=== PATIENT | female | born 1985 ===

== ENCOUNTER 2021-02-11 01:35 | Inpatient (IN) | payer OTHER ==
--- NOTE | 2021-02-11 04:52 | XRay Report ---
CHEST 2 VIEWS INDICATION / CLINICAL INFORMATION: cough. COMPARISON: None available. FINDINGS: SUPPORT DEVICES: None. HEART / MEDIASTINUM: No significant abnormality. LUNGS / PLEURA: Moderate streaky bilateral parenchymal disease No pneumothorax. ADDITIONAL FINDINGS: No significant additional findings. IMPRESSION: 1. Probable bilateral Covid pneumonia Signer Name: Riley Richmond MD Signed: 02/11/2021 4:47 AM Workstation Name: [id number]
--- NOTE | 2021-02-11 07:38 | Emergency Department Report ---
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 Kd Ariza) Mode of arrival: Ambulatory Limitations: No Limitations - History of Present Illness Initial comments: 35-year-old female who is 33 weeks presents to the emergency department complaining of 1 week of headache, coryza and malaise after testing positive Covid about a week to week and a half ago. Over the past few days she reports developing chest pain shortness of breath with fever. Symptoms have been progressive worsening since the onset she reports no hemoptysis no hematemesis hematochezia. Radiation: non-radiation Severity scale (0 -10): 4 Quality: dull Improves with: none Worsens with: none Associated Symptoms: cough, fever/chills, malaise. denies: syncope, weakness Treatments Prior to Arrival: none - Related Data Allergies Allergy/AdvReac Type Severity Reaction Status Date / Time No Known Allergies Allergy Verified 02/11/21 02:13 ED Review of Systems ROS: Stated complaint: BACK PAIN/COUGH/HEADACHE - 33 WKS Other details as noted in HPI Comment: All other systems reviewed and negative ED Past Medical Hx - Past Medical History Previous Medical History?: No - Surgical History Past Surgical History?: No ED Physical Exam - General Limitations: No Limitations General appearance: alert, in no apparent distress - Head Head exam: Present: atraumatic, normocephalic - Eye Eye exam: Present: normal appearance, PERRL, EOMI Pupils: Present: normal accommodation - ENT ENT exam: Present: normal exam, normal orophraynx, mucous membranes moist, TM's normal bilaterally - Neck Neck exam: Present: normal inspection, full ROM - Respiratory Respiratory exam: Present: normal lung sounds bilaterally, rhonchi. Absent: respiratory distress - Cardiovascular Cardiovascular Exam: Present: regular rate, normal rhythm. Absent: systolic murmur, diastolic murmur, rubs, gallop - GI/Abdominal GI/Abdominal exam: Present: soft, normal bowel sounds, other (Protuberant ) - Extremities Exam Extremities exam: Present: normal inspection - Back Exam Back exam: Present: normal inspection - Neurological Exam Neurological exam: Present: alert, oriented X3 - Psychiatric Psychiatric exam: Present: normal affect, normal mood - Skin Skin exam: Present: warm, dry, intact, normal color. Absent: rash ED Course Vital Signs 02/11/21 01:36 Temperature 100.1 F H Pulse Rate 107 H Respiratory 18 Rate Blood Pressure 129/76 [Right] O2 Sat by Pulse 98 Oximetry - Consultations Consultation #1: 02/11/21 07:40 Case discussed with hospitalist x2, is aware of the recommendations of the FISHING VESSEL CAPTAIN. Plan is for hospitalist to admit please see their note and order for more detail ED Medical Decision Making - Radiology Data Radiology results: report reviewed [facility] [address] [place] [address] XRay Report Signed Patient: BURT OBRIEN MR#: [id number] : 1985 A cct:[id number] Age/Sex: 35 / F ADM Date: 02/11/21 Loc: ED Attending Dr: Ordering Physician: REYMUNDO CAPONE Date of Service: 02/11/21 Procedure(s): XR chest routine 2V Accession Number(s): [id number] cc: REYMUNDO CAPONE Fluoro Time In Minutes: CHEST 2 VIEWS INDICATION / CLINICAL INFORMATION: cough. COMPARISON: None available. FINDINGS: SUPPORT DEVICES: None. HEART / MEDIASTINUM: No significant abnormality. LUNGS / PLEURA: Moderate streaky bilateral parenchymal disease No pneumothorax. ADDITIONAL FINDINGS: No significant additional findings. IMPRESSION: 1. Probable bilateral Covid pneumonia Signer Name: Riley Richmond MD Signed: 02/11/2021 4:47 AM Workstation Name: [id number] Transcribed By: TL Dictated By: Riley Richmond MD Electronically Authenticated By: Riley Richmond MD Signed Date/Time: 02/11/21446 DD/ 6 TD/TT: Print Cancel - Medical Decision Making This patient presents to the emergency department with fever and lower respiratory symptoms that appear to be related to her and COVID-19. Patient has had reported complaints COVID-19 infection. Differential diagnosis includes other viral causes of lower respiratory symptoms, pneumonia, asthma, bronchitis. Presentation not consistent with acute cardiac etiologies to include acute coronary syndrome, CHF, pericardial effusion or tamponade. The presentation is not consistent with acute asthma, COPD, allergic reactions, electrolyte derangement, neurological causes or toxidromes. Patient is well-appearing with acceptable vitals and relatively stable however does develop shortness of breath with ambulation without any desaturation coupled with the does not feel she is is safe to be discharged home Provide strict return precautions and instructions on self isolation/quarantine and anticipatory guidance. FISHING VESSEL CAPTAIN is at [facility] does not come to this facility plan is to admit for close follow-up and stabilization. Discussed the case with Dr. Sainz medicine who referred me to FISHING VESSEL CAPTAIN Dr. Vazquez who then referred me back to medicine Case was also discussed with my attending who also had [id number] with the patient x2 is aware of the findings and agrees with the admission he is also aware with the complications I encountered while attempting to admit this patient. Critical care attestation.: If time is entered above; I have spent that time in minutes in the direct care of this critically ill patient, excluding procedure time. ED Disposition Clinical Impression: Pneumonia due to COVID-19 virus, Dyspnea due to COVID-19, Disposition: ADMITTED INPATIENT Is pt being admited?: Yes Does the pt Need Aspirin: No Condition: Stable Instructions: Bacterial Pneumonia (ED)
[2021-02-11] MEDS ORDERED: MAGNESIUM HYDROXIDE (MOM) ORAL LIQD UDC PO PRN (08:56)
[2021-02-11] MEDS ORDERED: ACETAMINOPHEN 325 MG TAB PO PRN (08:56)
[2021-02-11] MEDS ORDERED: NALOXONE 0.4 MG/1 ML INJ IV PRN (08:56)
[2021-02-11] MEDS ORDERED: traMADol 50 MG TAB PO PRN (08:56)
[2021-02-11] MEDS ORDERED: ONDANSETRON 4 MG/2 ML INJ IV PRN (08:56)
--- NOTE | 2021-02-11 09:03 | History and Physical Report ---
History of Present Illness Date of examination: 02/11/21 Date of admission: 02/11/21 Chief complaint: Shortness of breath, abdominal pain, back pain, cough recent diagnosis of COVID- 19 History of present illness: Patient is a 35-year-old female currently at 33 weeks of with COVID-19 diagnosed a week and a half ago. She reports that since then she has been having shortness of breath subjective fever and worsening cough and low back pain which made her come to the hospital today for further evaluation. At the time I saw her in the ED she was noted to have a T-max of 100.1 with a normal white count with chest x-ray revealing bilateral pneumonia. I did have one of the nurses ambulate and she was satting 91% with ambulation with a heart rate of 118. Labs had not been ordered at the time of my evaluation Frisian interpretation used for my interview Past History Past Medical History: No medical history Past Surgical History: No surgical history Social history: no significant social history Family history: no significant family history Medications and Allergies Allergies Allergy/AdvReac Type Severity Reaction Status Date / Time No Known Allergies Allergy Verified 02/11/21 02:13 Review of Systems All systems: negative Constitutional: fever, malaise, lethargy Respiratory: cough, shortness of breath, no cough with sputum, no excessive sputum, no hemoptysis, no dyspnea on exertion Musculoskeletal: low back pain Exam - Physical Exam Narrative exam: VITAL SIGNS: Reviewed. GENERAL: The patient appears normally developed, Vital signs as documented. HEAD: No signs of head trauma. EYES: Pupils are equal. Extraocular motions intact. EARS: Hearing grossly intact. MOUTH: Oropharynx is normal. NECK: No adenopathy, no JVD. CHEST: Chest with clear breath sounds bilaterally. No wheezes, rales, or rhonchi. CARDIAC: Regular rate and rhythm. S1 and S2, without murmurs, gallops, or rubs. VASCULAR: No Edema. Peripheral pulses normal and equal in all extremities. ABDOMEN: Soft, non tender and non distended [gravidUS]. No rebound or guarding, and no masses palpated. Bowel Sounds normal. MUSCULOSKELETAL: Good range of motion of all major joints. Extremities without clubbing, cyanosis or edema. NEUROLOGIC EXAM: Alert and oriented x 3 No focal sensory or strength deficits. Speech normal. Follows commands. PSYCHIATRIC: Mood normal. SKIN: detail exam as documented in skin assessment - Constitutional Vitals: Temp Pulse Resp BP Pulse Ox 100.1 F H 100 H 17 129/76 95 02/11/21 01:36 02/11/21 08:31 02/11/21 08:33 02/11/21 01:36 02/11/21 08:33 Results - Labs CBC & Chem 7: 02/11/21 09:24 02/11/21 09:24 Assessment and Plan Assessment and plan: Patient is a 35-year-old female currently at 33 weeks of with COVID-19 diagnosed a week and a half ago. She reports that since then she has been having shortness of breath subjective fever and worsening cough and low back pain which made her come to the hospital today for further evaluation. At the time I saw her in the ED she was noted to have a T-max of 100.1 with a normal white count with chest x-ray revealing bilateral pneumonia. I did have one of the nurses ambulate and she was satting 91% with ambulation with a heart rate of 118. Labs had not been ordered at the time of my evaluation Frisian interpretation used for my interview cxr REVIEWED, Bilateral Infiltrates COVID 19 Pneumonia Respiratory failure without Hypoxia at 33 weeks Hypokalemia Plan Admit to [facility] COVID 19 Protocol Oxygen for comfort measures Inflammatory markers Discussed with SOLE CONDITIONER and ID prior to admission both ok with Remedesivir. Discussed with the patient via property analyst and she gave consent Adam [facility] O[facility] AND ID Consult Rememdeivir Steroids Re-evlauate in am for possible discharge counselling provided DVT/GI prophy Patients condition discussed extensively, risk factors discussed. Advance Directives: Yes Plan of care discussed with patient/family: Yes
--- NOTE | 2021-02-11 09:33 | Ultrasound Report ---
ULTRASOUND OBSTETRIC INDICATION / CLINICAL INFORMATION: , abd pain. Clinical Gestational Age (GA): 33 weeks 0 days TECHNIQUE: Transabdominal. COMPARISON: None available. FINDINGS: There is a single intrauterine . Biparietal Diameter = 8.3 cm = 33 weeks, 2 day(s). Head Circumference = 30.5 cm = 33 weeks, 6 day(s). Abdominal Circumference = 29.6 cm = 33 weeks, 4 day(s). Femur Length = 5.8 cm = 30 weeks, 4 day(s). Average Ultrasound Age (AUA) = 32 weeks, 6 day(s). Heart Rate: 124 beats per minute. Estimated Weight in grams (if calculated): 2032 Position: cephalic. Cervix: closed. Length in cm (if measured): 4.2 Placenta: anterior and free of the os. Amniotic Fluid Volume: normal Amniotic Fluid Index (GEE) in cm (if calculated): 12.6. Detailed anatomic survey was not performed. There is a normal four-chamber heart. The stomach, kidneys, and bladder are visualized. IMPRESSION: 1. Single, living intrauterine with estimated sonographic age of 32 weeks, 6 day(s). 2. No significant sonographic abnormality. Signer Name: Concha Alfonso MD Signed: 02/11/2021 9:28 AM Workstation Name: [id number]
[2021-02-11] MEDS: ENOXAPARIN 40 MG/0.4 ML INJ SUB-Q SCH (09:49)
[2021-02-11 09:55] LABS: Basophils % (Auto) 0.1 % (0.0-1.8); Hematocrit 36.2 % (30.3-42.9); Hemoglobin 12.9 gm/dl (10.1-14.3); Lymphocytes # (Auto) 1.5 K/mm3 (1.2-5.4); Lymphocytes % (Auto) 19.6 % (13.4-35.0); Mean Corpuscular HGB Conc 36 % (30-34); Mean Corpuscular Volume 87 fl (79-97); Monocytes # (Auto) 0.5 K/mm3 (0.0-0.8); Monocytes % (Auto) 6.9 % (0.0-7.3); Platelet Count 235 K/mm3 (140-440); Red Blood Count 4.15 M/mm3 (3.65-5.03); Red Cell Distribution Width 13.6 % (13.2-15.2)
[2021-02-11] MEDS ORDERED: dexAMETHasone 4 MG/ML VIAL IV ONE (10:00)
[2021-02-11 10:18] LABS: C-Reactive Protein 6.4 mg/dL (0.00-1.30)
[2021-02-11 10:19] LABS: Alanine Aminotransferase 18 units/L (7-56); Albumin 3.1 g/dL (3.9-5); BUN/Creatinine Ratio 8; Blood Urea Nitrogen 3 mg/dL (7-17); Calcium 8.5 mg/dL (8.4-10.2); Hemolysis Index 3
[2021-02-11] MEDS ORDERED: REMDESIVIR 200 MG in SODIUM CHLORIDE 0.9% 250ML 250 ML IV ONE (12:00)
[2021-02-11] MEDS ORDERED: SODIUM CHLORIDE 0.9% 50 ML IVPB IV SCH (12:30)
--- NOTE | 2021-02-11 14:38 | Consultation ---
History of Present Illness - Reason for Consult Consult date: 02/11/21 - History of Present Illness 35 yo F PMHx at 33 weeks presents with 1 week history of COVID. She initially tested positive approximately 1.5 weeks previous. Complaining of SOB, fever. O2 sats down to 92% on room airon ambulation. Afebrile, Tmax 100.1. Normal white count. Imaging personally reviewed: CXR: bilateral pneumonia. Review of systems: Deferred to reduce to the risk of transmission of COVID-19 Medications and Allergies Allergies Allergy/AdvReac Type Severity Reaction Status Date / Time No Known Allergies Allergy Verified 02/11/21 02:13 Active Meds: Active Medications Acetaminophen (Acetaminophen 325 Mg Tab) 650 mg PO Q4H PRN PRN Reason: Pain MILD(1-3)/Fever >100.5/HAUSER Enoxaparin Sodium (Enoxaparin 40 Mg/0.4 Ml Inj) 40 mg SUB-Q QDAY [facility] Last Admin: 02/11/21 09:49 Dose: 40 mg Documented by: REMDESIVIR 100 mg/ Sodium (Chloride) 250 mls @ 500 mls/hr IV Q24HR@2100 [facility] Stop: 02/15/21 21:29 Magnesium Hydroxide (Magnesium Hydroxide (Mom) Oral Liqd Udc) 30 ml PO Q4H PRN PRN Reason: Constipation Naloxone HCl (Naloxone 0.4 Mg/1 Ml Inj) 0.1 mg IV Q2MIN PRN PRN Reason: Res Rate </= 8 or 02 SAT < 92% Ondansetron HCl (Ondansetron 4 Mg/2 Ml Inj) 4 mg IV Q4HR PRN PRN Reason: Nausea And Vomiting Sodium Chloride (Sodium Chloride 0.9% 10 Ml Flush Syringe) 10 ml IV BID [facility] Last Admin: 02/11/21 09:49 Dose: 10 ml Documented by: Sodium Chloride (Sodium Chloride 0.9% 10 Ml Flush Syringe) 10 ml IV PRN PRN PRN Reason: LINE FLUSH Sodium Chloride (Sodium Chloride 0.9% 50 Ml Ivpb) 50 ml IV Q24HR@2100 [facility] Stop: 02/15/21 21:01 Tramadol HCl (Tramadol 50 Mg Tab) 50 mg PO Q6H PRN PRN Reason: Pain, Moderate (4-6) Physical Examination - Physical Exam Narrative exam: Physical exam deferred to reduce risk of transmission of COVID-19. Please refer to primary team's note. - Constitutional Vitals: Vital Signs Temp Pulse Resp BP Pulse Ox 98.3 F 90 28 H 118/81 98 02/11/21 08:56 02/11/21 10:45 02/11/21 10:45 02/11/21 10:45 02/11/21 10:45 Temperature -Last 24 Hours Temperature 98.3 F Temperature 100.1 F Results - Labs CBC & Chem 7: 02/11/21 09:24 02/11/21 09:24 Labs: Abnormal lab results 02/11/21 02/11/21 02/11/21 Range/Units 09:24 09:24 09:24 MCHC 36 H (30-34) % Seg Neutrophils % 73.4 H (40.0-70.0) % D-Dimer 1037.96 H (0-234) ng/mlDDU Potassium (3.6-5.0) mmol/L Carbon Dioxide (22-30) mmol/L BUN (7-17) mg/dL Creatinine (0.6-1.2) mg/dL Alkaline Phosphatase (35-129) units/L C-Reactive Protein 6.40 H (0.00-1.30) mg/dL Albumin (3.9-5) g/dL 02/11/21 Range/Units 09:24 MCHC (30-34) % Seg Neutrophils % (40.0-70.0) % D-Dimer (0-234) ng/mlDDU Potassium 3.2 L (3.6-5.0) mmol/L Carbon Dioxide 19 L (22-30) mmol/L BUN 3 L (7-17) mg/dL Creatinine 0.4 L (0.6-1.2) mg/dL Alkaline Phosphatase 161 H (35-129) units/L C-Reactive Protein (0.00-1.30) mg/dL Albumin 3.1 L (3.9-5) g/dL Assessment and Plan Cultures: COVID PCR: positive as outpatient A/P: 35 yo F pmhx now with: #Severe COVID-19 pneumonia: Patient presented with a week of symptoms, chest x- ray with diffuse bilateral infiltrates, admission O2 sats on 92% room air with ambulation. Inflammatory markers elevated #Acute hypoxemic respiratory failure: Likely secondary to COVID-19 infection. Currently on room air # Recs: -Dexamethasone 6 mg IV/PO daily for 10 days -Remdesivir 200 mg IV q day x 1 followed by 100 mg IV q day x 4 days -Obtain q48-72h inflammatory markers - ferritin, Ddimer, CRP, LDH -Hold on ABx for now. -Anticoagulation per hospital protocol -Proning as able Thank you for the consult, we will continue to follow. No need to complete remdesivir course if ambulatory saturations improve. MD Mignon Montanez [facility] O: [phone] F: [phone]
[2021-02-11] MEDS ORDERED: POTASSIUM CHLORIDE ER 20 MEQ TAB PO ONE (15:45)
--- NOTE | 2021-02-11 20:40 | Ultrasound Report ---
ULTRASOUND BIOPHYSICAL PROFILE INDICATION / CLINICAL INFORMATION: WELL BEING. COMPARISON: None available. FINDINGS: BREATHING MOVEMENT = 2 GROSS BODY MOVEMENT = 2 TONE = 2 QUALITATIVE AMNIOTIC FLUID VOLUME = 2 TOTAL BIOPHYSICAL SCORE = 12/06 AMNIOTIC FLUID INDEX (cm) = 12.6 PRESENTATION: Cephalic. HEART RATE (beats per minute): 124 IMPRESSION: 1. biophysical profile = 12/06 Signer Name: Noe Pisano MD Signed: 02/11/2021 8:36 PM Workstation Name: [id number]
[2021-02-12 08:04] LABS: Basophils % (Auto) 0.2 % (0.0-1.8); Eosinophils % (Auto) 0.1 % (0.0-4.3); Hematocrit 37.1 % (30.3-42.9); Hemoglobin 12.6 gm/dl (10.1-14.3); Lymphocytes # (Auto) 1.6 K/mm3 (1.2-5.4); Lymphocytes % (Auto) 23.8 % (13.4-35.0); Mean Corpuscular HGB Conc 34 % (30-34); Mean Corpuscular Volume 88 fl (79-97); Monocytes # (Auto) 0.6 K/mm3 (0.0-0.8); Monocytes % (Auto) 8.8 % (0.0-7.3); Platelet Count 261 K/mm3 (140-440); Red Blood Count 4.23 M/mm3 (3.65-5.03); Red Cell Distribution Width 13.8 % (13.2-15.2)
--- NOTE | 2021-02-12 08:24 | Consultation ---
History of Present Illness Consult date: 02/11/21 Requesting physician: RAFAL ELIZABETH Reason for consult: other (COVID PNA with known ) History of present illness: 35-year-old G5, P4 at 33 weeks gestation with plan of care and [facility] clinic reported benign care presenting with a known positive Covid test for approximately a week and a half per patient report with worsening shortness of breath and chest pain with a past couple of days admitted by the hospitalist team for Covid pneumonia. Patient denies any complaints. Reports active fetus. Past History Past Medical History: no pertinent history Past Surgical History: no surgical history Family/Genetic History: none Social history: no significant social history - Obstetrical History : 5 Para: 4 Medications and Allergies Allergies Allergy/AdvReac Type Severity Reaction Status Date / Time No Known Allergies Allergy Verified 02/11/21 02:13 Home Medications Medication Instructions Recorded Confirmed Last Taken Type No Known Home Medications [No 02/11/21 02/11/21 Unknown History Reported Home Medications] Active Meds: Active Medications Acetaminophen (Acetaminophen 325 Mg Tab) 650 mg PO Q4H PRN PRN Reason: Pain MILD(1-3)/Fever >100.5/HAUSER Enoxaparin Sodium (Enoxaparin 40 Mg/0.4 Ml Inj) 40 mg SUB-Q QDAY [facility] Last Admin: 02/11/21 09:49 Dose: 40 mg Documented by: REMDESIVIR 100 mg/ Sodium (Chloride) 250 mls @ 500 mls/hr IV Q24HR@2100 [facility] Stop: 02/15/21 21:29 Magnesium Hydroxide (Magnesium Hydroxide (Mom) Oral Liqd Udc) 30 ml PO Q4H PRN PRN Reason: Constipation Naloxone HCl (Naloxone 0.4 Mg/1 Ml Inj) 0.1 mg IV Q2MIN PRN PRN Reason: Res Rate </= 8 or 02 SAT < 92% Ondansetron HCl (Ondansetron 4 Mg/2 Ml Inj) 4 mg IV Q4HR PRN PRN Reason: Nausea And Vomiting Sodium Chloride (Sodium Chloride 0.9% 10 Ml Flush Syringe) 10 ml IV BID [facility] Last Admin: 02/11/21 22:14 Dose: 10 ml Documented by: Sodium Chloride (Sodium Chloride 0.9% 10 Ml Flush Syringe) 10 ml IV PRN PRN PRN Reason: LINE FLUSH Sodium Chloride (Sodium Chloride 0.9% 50 Ml Ivpb) 50 ml IV Q24HR@2100 [facility] Stop: 02/15/21 21:01 Last Admin: 02/11/21 15:50 Dose: 50 ml Documented by: Tramadol HCl (Tramadol 50 Mg Tab) 50 mg PO Q6H PRN PRN Reason: Pain, Moderate (4-6) Review of Systems All systems: negative (expect HPI) - Vital Signs Vital signs: Vital Signs Temp Pulse Resp BP Pulse Ox 100.1 F H 107 H 18 129/76 98 02/11/21 01:36 02/11/21 01:36 02/11/21 01:36 02/11/21 01:36 02/11/21 01:36 Temp Pulse Resp BP Pulse Ox 98.0 F 92 H 20 139/73 97 02/12/21 04:59 02/12/21 04:59 02/12/21 04:59 02/12/21 04:59 02/12/21 04:59 - Physical Exam Abdomen: Positive: normal appearance, soft, normal bowel sounds Uterus: Positive: enlarged - Obstetrical FHR: category 1 Uterine Contraction Monitor Mode: External Results Result Diagrams: 02/12/21 07:40 02/11/21 09:24 Abnormal lab results 02/11/21 02/11/21 02/11/21 Range/Units 09:24 09:24 09:24 MCHC 36 H (30-34) % Baxter % (Auto) (0.0-7.3) % Seg Neutrophils % 73.4 H (40.0-70.0) % D-Dimer 1037.96 H (0-234) ng/mlDDU Potassium (3.6-5.0) mmol/L Carbon Dioxide (22-30) mmol/L BUN (7-17) mg/dL Creatinine (0.6-1.2) mg/dL Alkaline Phosphatase (35-129) units/L C-Reactive Protein 6.40 H (0.00-1.30) mg/dL Albumin (3.9-5) g/dL 02/11/21 02/12/21 Range/Units 09:24 07:40 MCHC (30-34) % Baxter % (Auto) 8.8 H (0.0-7.3) % Seg Neutrophils % (40.0-70.0) % D-Dimer (0-234) ng/mlDDU Potassium 3.2 L (3.6-5.0) mmol/L Carbon Dioxide 19 L (22-30) mmol/L BUN 3 L (7-17) mg/dL Creatinine 0.4 L (0.6-1.2) mg/dL Alkaline Phosphatase 161 H (35-129) units/L C-Reactive Protein (0.00-1.30) mg/dL Albumin 3.1 L (3.9-5) g/dL All other labs normal. Assessment and Plan - Patient Problems (1) Pneumonia due to COVID-19 virus Current Visit: Yes Status: Acute Plan to address problem: Care per hospitalist and infectious disease team. All current treatment regimens are safe and indicated during . --Dispo per primary team (2) Current Visit: Yes Status: Acute Qualifiers: Weeks of gestation: 33 weeks Qualified Code(s): Z3A.33 - 33 weeks gestation of Plan to address problem: Status post normal BPP. Patient without any current complaints. --FHTs every shift --We will continue to follow peripherally. [employer]PER[employer] is available for questions
[2021-02-12 08:34] LABS: Alanine Aminotransferase 15 units/L (7-56); BUN/Creatinine Ratio 17; Blood Urea Nitrogen 5 mg/dL (7-17); Calcium 8.5 mg/dL (8.4-10.2); Hemolysis Index 0
--- NOTE | 2021-02-12 08:51 | Discharge Summary ---
Providers - Providers Date of Admission: 02/11/21 08:56 Attending physician: RAFAL ELIZABETH MD 02/11/21 08:59 Consult to Dietitian/Nutrition [CONS] Routine Physician Instructions: Reason For Exam: Reason for Consult: Diet education 02/11/21 09:00 Consult to Physician [CONS] Routine Comment: Consulting Provider: QUITA WOMACK Physician Instructions: Reason For Exam: COVID PNEUMONIA 02/11/21 15:40 Consult to Physician [CONS] Routine Comment: Consulting Provider: HERIBERTO HOLLOWAY JR Physician Instructions: Reason For Exam: IUP 33 WEEKS Primary care physician: CAR SHIFTER Hospitalization Reason for admission: Shortness of breath Condition: Stable Hospital course: Patient is a 35-year-old female currently at 33 weeks of with COVID-19 diagnosed a week and a half ago. She reports that since then she has been having shortness of breath subjective fever and worsening cough and low back pain which made her come to the hospital today for further evaluation. At the time I saw her in the ED she was noted to have a T-max of 100.1 with a normal white count with chest x-ray revealing bilateral pneumonia. I did have one of the nurses ambulate and she was satting 91% with ambulation with a heart rate of 118. Labs had not been ordered at the time of my evaluation [place] interpretation used for my interview cxr REVIEWED, Bilateral Infiltrates COVID 19 Pneumonia Respiratory failure without Hypoxia at 33 weeks Hypokalemia Plan 02/12: Patient was admitted and treated with remdesivir following verbal consent from the patient. Also steroid therapy she did show some remarkable improvement she did have ultrasound done which showed viable . She is cleared at this time for discharge follow-up outpatient with her primary care doctor and her [employer]. She does not exhibit any shortness of breath this morning no further headache or back pain except her usual pains. Noted hypokalemia was replaced Disposition: 01 HOME / SELF CARE / HOMELESS Final Discharge Diagnosis (Prints w/discharge instructions): COVID-19 with pneumonia Time spent for discharge: 35-minute Core Measure Documentation - Palliative Care Palliative Care/ Comfort Measures: Not Applicable - Core Measures Any of the following diagnoses?: none Exam - Physical Exam Narrative exam: VITAL SIGNS: Reviewed. GENERAL: The patient appears normally developed, Vital signs as documented. HEAD: No signs of head trauma. EYES: Pupils are equal. Extraocular motions intact. EARS: Hearing grossly intact. MOUTH: Oropharynx is normal. NECK: No adenopathy, no JVD. CHEST: Chest with clear breath sounds bilaterally. No wheezes, rales, or rhonchi. CARDIAC: Regular rate and rhythm. S1 and S2, without murmurs, gallops, or rubs. VASCULAR: No Edema. Peripheral pulses normal and equal in all extremities. ABDOMEN: Soft, non tender and non distended [gravidUS]. No rebound or guarding, and no masses palpated. Bowel Sounds normal. MUSCULOSKELETAL: Good range of motion of all major joints. Extremities without clubbing, cyanosis or edema. NEUROLOGIC EXAM: Alert and oriented x 3 No focal sensory or strength deficits. Speech normal. Follows commands. PSYCHIATRIC: Mood normal. SKIN: detail exam as documented in skin assessment - Constitutional Vitals: Temp Pulse Resp BP Pulse Ox 98.0 F 92 H 20 139/73 97 02/12/21 04:59 02/12/21 04:59 02/12/21 04:59 02/12/21 04:59 02/12/21 04:59 Plan Activity: advance as tolerated, fall precautions Diet: low fat Special Instructions: record daily weights, record daily BP diary Follow up with: PRIMARY CARE, [Primary Care Provider] - 7 Days HERIBERTO HOLLOWAY JR, MD [Staff Physician] - 7 Days Prescriptions: dexAMETHasone [Dexamethasone] 6 mg PO DAILY #8 tablet Ascorbic Acid [Vitamin C] 500 mg PO Q12H #60 tablet Zinc Sulfate 220 mg PO DAILY #30 capsule
[2021-02-12] MEDS ORDERED: POTASSIUM CHLORIDE ER 20 MEQ TAB PO NR (09:00)
[2021-02-12] MEDS: ENOXAPARIN 40 MG/0.4 ML INJ SUB-Q SCH (10:35)
[2021-02-12 11:30] VITALS: BP 122/69
--- NOTE | 2021-02-12 14:42 | Vascular Lab Report ---
DUPLEX DOPPLER LOWER EXTREMITY VEINS, BILATERAL INDICATION / CLINICAL INFORMATION: VTE. 33 weeks . COVID 19 pneumonia. TECHNIQUE: Duplex doppler imaging was performed through the veins of both lower extremities using raulito ous compression and other maneuvers. COMPARISON: None available. FINDINGS: RIGHT COMMON FEMORAL VEIN: Negative. RIGHT FEMORAL VEIN: Negative. RIGHT POPLITEAL VEIN: Negative. RIGHT CALF VEINS: Negative. LEFT COMMON FEMORAL VEIN: Negative. LEFT FEMORAL VEIN: Negative. LEFT POPLITEAL VEIN: Negative. LEFT CALF VEINS: Negative. ADDITIONAL FINDINGS: No abnormal mass or fluid collection is seen. IMPRESSION: No sonographic evidence for DVT in either lower extremity. Scribed by: Arabella Spencer RDMS, RVT Scribed: 02/12/2021 12:58 PM I have reviewed the images, agree with this report, and edited this report as needed. Signer Name: Avinash Maurer MD Signed: 02/12/2021 2:37 PM Workstation Name: [id number]
[2021-02-12] MEDS ORDERED: REMDESIVIR 100 MG in SODIUM CHLORIDE 0.9% 250ML 250 ML IV SCH (21:00)
== END 2021-02-12 12:46 | disposition home or self-care (01) | DRG 831 ==
LOC: ED 01:35 → 3A 08:56
PROVIDERS: ADMIT Internal Medicine; ATTEND Internal Medicine
PROC: XW033E5 Introduction of Remdesivir Anti-infective into Peripheral Vein, Percutaneous Approach, New Technology Group 5 (ICD-10-PCS; principal; 2021-02-11)
DX: O98.513 Other viral diseases complicating pregnancy, third trimester (principal); U07.1 COVID-19; J96.00 Acute respiratory failure, unspecified whether with hypoxia or hypercapnia; J12.82 Pneumonia due to coronavirus disease 2019; Z3A.33 33 weeks gestation of pregnancy; O99.513 Diseases of the respiratory system complicating pregnancy, third trimester; O99.283 Endocrine, nutritional and metabolic diseases complicating pregnancy, third trimester; E87.6 Hypokalemia
CPT/HCPCS: 36415; 71046; 76805; 76819; 80053; 82728; 82947; 83615; 84145; 85025; 85379; 86140; 93970; G0378; J1100; J1650; J7050; U0003